=== PATIENT | male | born 1960 | race African-American/Black ===

== ENCOUNTER → 2016-08-23 | Outpatient (CLI) | payer OTHER ==
[~2016-08-23] MED LIST: AMLO10TA2 PO; ASPI81TA81 PO; HYDR25TA5 PO; LEVO500T8 PO; METO25TA3 PO
[2016-08-23 11:31] LABS: AUTOMATED NEUTROPHIL # 2.2 TH/MM3 (1.8-7.7); BASOPHIL # 0.1 TH/MM3 (0-0.2); BASOPHIL % 1.4 % (0.0-2.0); EOSINOPHIL # 0.3 TH/MM3 (0-0.4); EOSINOPHIL % 7.2 % (0.0-4.0); HEMATOCRIT 42.4 % (39.0-51.0); HEMO FLAGS DIFF FINAL; LYMPH % 29.8 % (9.0-44.0); LYMPHOCYTE # 1.3 TH/MM3 (1.0-4.8); MEAN CELL VOLUME 94.2 FL (80.0-100.0); MEAN CORPUSCULAR HEMOGLOBIN 31.3 PG (27.0-34.0); MEAN CORPUSCULAR HGB CONC 33.3 % (32.0-36.0); MONO % 9.9 % (0.0-8.0); NEUT % 51.7 % (16.0-70.0); PLATELET COUNT 221 TH/MM3 (150-450); RED CELL DISTRIBUTION WIDTH 13.2 % (11.6-17.2); WHITE BLOOD COUNT 4.3 TH/MM3 (4.0-11.0)
== END ==
LOC: CPRE 10:24
PROVIDERS: ATTEND Urology
DX: Z01.812 Encounter for preprocedural laboratory examination (principal); R97.20 Elevated prostate specific antigen [PSA]
CPT/HCPCS: 36415; 85025

== ENCOUNTER → 2016-08-30 | Day surgery (SDC) | payer OTHER ==
[~2016-08-30] VITALS: Ht 185.4 cm; Wt 93.2 kg
[~2016-08-30] MED LIST changes: +BELLADONNA ALKALOIDS/OPIUM 60 MG SUPP RECTAL ONE; +BELLADONNA ALKALOIDS/OPIUM 60 MG SUPP RECTAL PRN; +BUPIVACAINE HCL PF 0.5% 30 ML VIAL ONE; +CHLORHEXIDINE GLUCONATE 2 % 1 PACK (2 CLOTHS) TOPICAL PRN; +CIPROFLOXACIN/DEXT 400 MG/200 ML IV SCH; +INSULIN HUMAN REGULAR 1,000 UNITS/10 ML VIAL SQ PRN; +LACTATED RINGER'S 1000 ML IV PRN; +LIDOCAINE 1%/EPINEPHrine 1:100,000 SOLN 20 ML VIAL ONE; +LIDOCAINE 2% JELLY 30 ML TUBE ONE; +METOPROLOL TARTRATE 25 MG TAB PO PRN; +MIDAZOLAM HCL 2 MG/2 ML VIAL ONE; +ONDANSETRON HCL 4 MG/2 ML VIAL IV PUSH PRN; +POVIDONE IODINE 5% (ANTISEPSIS KIT) 4 APPLICATIONS EACH NARE PRN; +PROPOFOL 200 MG/20 ML AMP IV ONE; +SODIUM CHLORID 0.9% 500 ML IV PRN
[2016-08-30 07:46] VITALS: BP 156/80; PULSE 92; RESP 20; TEMP 98.6; O2SAT 98
--- NOTE | 2016-08-30 09:45 | PD.OP ---
Operative Report Date of Surgery: Aug 30, 2016 Preoperative Diagnosis: Elevated PSA with findings of a lesion of the left peripheral zone on MRI Postoperative Diagnosis: Same Procedure: Transrectal ultrasound with prostate needle biopsies Anesthesia: Mac Surgeon: Padilla Azul Mandrel Press Hand(s): None Resident Surgeon: None Operation and Findings: Sameer Hunter is a 55-year-old male with findings of an elevated PSA with a 13 mm lesion identified within the peripheral zone on the left side of the prostate gland on MRI. He is here today to undergo prostate needle biopsy. Risk and benefits were discussed preoperatively he is willing to proceed. He held his aspirin for 1 week prior. Patient is brought to the operating room identified myself as Sameer Hunter. He was placed in the left lateral recumbent position on the stretcher and received Mac anesthesia. Ultrasound probe was then introduced into the rectum after a bedside enema was administered. Volumetric measurements of the prostate were then taken. The gland size was was noted to be 29.41 cm. No hypoechoic lesions were identified on ultrasound exam. 11 core biopsies were taken of the left side of the gland and 6 core biopsies were taken of the right. He tolerated the procedure well and was woken and transferred her stable condition. He'll follow-up in a few weeks to review his pathology. Padilla Azul DO Aug 30, 2016 09:45
[2016-08-30 10:35] VITALS: BP 147/82; PULSE 71; RESP 18; TEMP 97.8; O2SAT 100
== END | disposition home or self-care (01) ==
LOC: HSDC 07:06
PROVIDERS: ATTEND Urology
DX: C61 Malignant neoplasm of prostate (principal)
CPT/HCPCS: 00400; 55700; 76872; 88305; J0744; J2250; J7120